=== PATIENT | female | born 1955 | race Caucasian/White ===

== ENCOUNTER 2023-12-12 18:04 | Emergency (ER) | payer MEDICARE, OTHER ==
[~2023-12-12] VITALS: Ht 172.7 cm; Wt 95.4 kg
[2023-12-12 18:52] LABS: HEMOGLOBIN 13.3 g/dL (12.0-18.0)
[2023-12-12 18:55] LABS: BASOPHILS 1.4 % (0-2); HEMATOCRIT 39.1 % (35.0-50.0); LYMPHOCYTES 30.6 % (24-44); MCH 30.9 (27-36); MCHC 33.9 g/dl (30-36); MCV 91.2 fl (81-99); PLATELET COUNT 173 K/uL (140-440); RBC 4.29 M/ul (4.3-5.7); RDW 13.3 (10.5-15.0)
[2023-12-12 19:03] LABS: BILIRUBIN, URINE NEGATIVE (negative); BLOOD/HGB, URINE NEGATIVE (Negative); KETONE, URINE NEGATIVE (Negative); LEUK ESTERASE, URINE NEGATIVE (negative); NITRITE, URINE NEGATIVE (negative); PH, URINE 7.5 (5-7)
[2023-12-12 19:14] LABS: ALBUMIN 3.9 g/dL (3.4-5.0); ALBUMIN/GLOBULIN RATIO 1.22 (1.1-2.4); ANION GAP 11.6 (7-21); BILIRUBIN, TOTAL 0.5 ng/dL (0.2-1.0); BUN/CREATININE RATIO 9.16 (6.0-28.6); CREATININE, SERUM 1.2 mg/dL (0.55-1.02); POTASSIUM 3.6 mmol/L (3.5-5.1); PROTEIN, TOTAL 7.1 g/dL (6.4-8.2)
[2023-12-12] MEDS ORDERED: ENALAPRILAT DIHYDRATE 1.25 MG/ML VIAL IV ONE ×2 (19:45→21:15)
[2023-12-12] MEDS ORDERED: LISINOPRIL10 MG PO (21:32)
[2023-12-12 21:55] VITALS: BP 146/84
[2023-12-12] MEDS ORDERED: BAYER CHEWABLE81 MG PO (21:55)
[2023-12-12] MEDS ORDERED: AMITRIPTYLINE H10 MG PO (21:56)
--- NOTE | 2023-12-12 22:28 | EKG ---
[facility] [address] [facility] [place], [place] [address] Signed Normal sinus rhythm Normal ECG No previous ECGs available Confirmed by Ryan Lee MD () on 12/12/2023 10:28:13 PM Electronically Signed By: RYAN LEE MD 12/12/238 PATIENT NAME: DEMETRIO FERRIS Electrocardiogram DATE OF : 59 PHYSICIAN: RYAN LEE MD REPORT #: [id number] REPORT IS CONFIDENTIAL AND NOT TO BE RELEASED WITHOUT AUTHORIZATION
== END 2023-12-12 21:48 | disposition home or self-care (01) ==
LOC: ED 18:04
PROVIDERS: Emergency Medicine
DX: R03.0 Elevated blood-pressure reading, without diagnosis of hypertension (principal); Z88.5 Allergy status to narcotic agent; Z79.899 Other long term (current) drug therapy; Z79.82 Long term (current) use of aspirin
CPT/HCPCS: 36415; 71045; 80053; 81003; 83880; 84484; 85025; 93005; 93010; 96374; 96376; 99284-25

== ENCOUNTER 2024-03-11 07:53 | Emergency (ER) | payer MEDICARE, OTHER ==
[~2024-03-11] VITALS: Ht 172.7 cm; Wt 97.7 kg
[~2024-03-11 07:53] MED LIST: AMITRIPTYLINE H10 MG PO; BAYER CHEWABLE81 MG PO; LISINOPRIL10 MG PO
[2024-03-11] MEDS ORDERED: LEVOTHYROXINE88 MCG PO (08:01)
[2024-03-11] MEDS ORDERED: LISINOPRIL2.5 MG PO (08:01)
[2024-03-11] MEDS ORDERED: ETOMIDATE 40 MG/20 ML VIAL IV ONE (08:15)
[2024-03-11 08:23] LABS: BASOPHILS 0.8 % (0-2); EOSINOPHILS 1.1 % (0-6); HEMATOCRIT 41.6 % (35.0-50.0); LYMPHOCYTES 41.4 % (24-44); MCH 30.8 (27-36); MCHC 33.6 g/dl (30-36); MCV 91.7 fl (81-99); MONOCYTES 7.7 % (0-12); PLATELET COUNT 153 K/uL (140-440); RBC 4.53 M/ul (4.3-5.7); RDW 13.6 (10.5-15.0)
[2024-03-11 08:38] LABS: ALBUMIN/GLOBULIN RATIO 1.29 (1.1-2.4); ANION GAP 14.2 (7-21); BILIRUBIN, TOTAL 0.8 ng/dL (0.2-1.0); BUN/CREATININE RATIO 11.2 (6.0-28.6); CALCIUM 9.1 mg/dL (8.5-10.1); CREATININE, SERUM 1.25 mg/dL (0.55-1.02); MAGNESIUM 1.7 mg/dL (1.8-2.4); POTASSIUM 3.2 mmol/L (3.5-5.1); PROTEIN, TOTAL 7.1 g/dL (6.4-8.2); TSH, 3RD GENERATION 5.43 uIU/mL (0.358-3.740)
[2024-03-11] MEDS ORDERED: POTASSIUM CHLORIDE 20 MEQ/15 ML CUP PO ONE (09:00)
[2024-03-11] MEDS ORDERED: DILTIAZEM HCl/D5W 125 ML IV SCH (09:00)
[2024-03-11] MEDS ORDERED: MAGNESIUM SULFATE 2 GM/50 ML BAG IV ONE (09:00)
[2024-03-11] MEDS ORDERED: dilTIAZem HCL 25 MG/5 ML VIAL IV ONE (09:00)
[2024-03-11] MEDS ORDERED: METOPROLOL TARTRATE 5 MG/5 ML VIAL IV SCH (10:45)
[2024-03-11] MEDS ORDERED: SODIUM CHLORIDE 0.9% 500 ML IV SCH (11:00)
[2024-03-11] MEDS ORDERED: APIXABAN 5 MG TAB PO ONE (12:15)
[2024-03-11 13:55] VITALS: BP 125/74
--- NOTE | 2024-03-11 22:04 | EKG ---
[facility] [address] [facility] [place] [address] Signed Poor data quality, interpretation may be adversely affected Atrial fibrillation with rapid ventricular response ST \T\ T wave abnormality, consider inferior ischemia Abnormal ECG When compared with ECG of 12-DEC-2023 18:24, Atrial fibrillation has replaced Sinus rhythm T wave inversion more evident in Inferior leads T wave inversion now evident in Lateral leads Confirmed by Ryan Lee MD () on 03/11/2024 10:04:04 PM Electronically Signed By: RYAN LEE MD 03/11/242203 PATIENT NAME: DEMETRIO FERRIS Electrocardiogram DATE OF : 59 PHYSICIAN: RYAN LEE MD REPORT #: [id number] REPORT IS CONFIDENTIAL AND NOT TO BE RELEASED WITHOUT AUTHORIZATION
--- NOTE | 2024-03-11 22:05 | EKG ---
[facility] [address] [facility] [place] [address] Signed Poor data quality, interpretation may be adversely affected Sinus tachycardia with premature supraventricular complexes Marked ST abnormality, possible lateral subendocardial injury Abnormal ECG When compared with ECG of 11-MAR-2024 08:00, Sinus rhythm has replaced Atrial fibrillation QT has lengthened Confirmed by Ryan Lee MD () on 03/11/2024 10:05:35 PM Electronically Signed By: RYAN LEE MD 03/11/245 PATIENT NAME: DEMETRIO FERRIS Electrocardiogram DATE OF : 59 PHYSICIAN: RYAN LEE MD REPORT #: [id number] REPORT IS CONFIDENTIAL AND NOT TO BE RELEASED WITHOUT AUTHORIZATION
--- NOTE | 2024-03-11 22:07 | EKG ---
[facility] [address] [facility] [place] [address] Signed Atrial fibrillation with rapid ventricular response Nonspecific ST and T wave abnormality Abnormal ECG When compared with ECG of 11-MAR-2024 08:00, Atrial fibrillation has replaced Sinus rhythm T wave inversion no longer evident in Lateral leads Confirmed by Ryan Lee MD () on 03/11/2024 10:07:16 PM Electronically Signed By: RYAN LEE MD 03/11/24 2207 PATIENT NAME: DEMETRIO FERRIS Electrocardiogram DATE OF : 59 PHYSICIAN: RYAN LEE MD REPORT #: [id number] REPORT IS CONFIDENTIAL AND NOT TO BE RELEASED WITHOUT AUTHORIZATION
== END 2024-03-11 13:55 | disposition short-term general hospital (02) ==
LOC: ED 07:53
PROVIDERS: Emergency Medicine
DX: I48.91 Unspecified atrial fibrillation (principal); E87.6 Hypokalemia; E83.42 Hypomagnesemia; I10 Essential (primary) hypertension; E03.9 Hypothyroidism, unspecified; F41.9 Anxiety disorder, unspecified; Z88.5 Allergy status to narcotic agent; Z79.82 Long term (current) use of aspirin; Z79.890 Hormone replacement therapy; Z79.899 Other long term (current) drug therapy
CPT/HCPCS: 36415; 71045; 80053; 83735; 84443; 84484; 85025; 93005; 93010; A9270; J3475; J7030

== ENCOUNTER 2024-05-02 15:17 | Emergency (ER) | payer MEDICARE, OTHER ==
[~2024-05-02] VITALS: Ht 172.7 cm; Wt 93.6 kg
[~2024-05-02 15:17] MED LIST changes: +LEVOTHYROXINE88 MCG PO; +LISINOPRIL2.5 MG PO
[2024-05-02] MEDS ORDERED: NITROGLYCERIN 0.4 MG SUBL SL PRN (15:45)
[2024-05-02] MEDS ORDERED: ASPIRIN 81 MG CHEW PO ONE (15:45)
[2024-05-02 16:13] LABS: BASOPHILS 0.7 % (0-2); EOSINOPHILS 0.8 % (0-6); HEMATOCRIT 41.4 % (35.0-50.0); HEMOGLOBIN 14.3 g/dL (12.0-18.0); LYMPHOCYTES 27.6 % (24-44); MCH 31.7 (27-36); MCHC 34.6 g/dl (30-36); MCV 91.7 fl (81-99); MONOCYTES 6.8 % (0-12); NEUTROPHILS 64.1 % (39-80); PLATELET COUNT 197 K/uL (140-440); RBC 4.52 M/ul (4.3-5.7); RDW 13.5 (10.5-15.0)
[2024-05-02 16:37] LABS: ALBUMIN/GLOBULIN RATIO 1.21 (1.1-2.4); ALKALINE PHOSPHATASE 68 U/L (46-116); ALT (SGPT) 25 U/L (14-59); ANION GAP 12.6 (7-21); AST (SGOT) 16 U/L (15-37); BILIRUBIN, TOTAL 0.7 ng/dL (0.2-1.0); BUN/CREATININE RATIO 10.67 (6.0-28.6); CALCIUM 9.4 mg/dL (8.5-10.1); CARBON DIOXIDE 29 mmol/L (21-32); CHLORIDE 103 mmol/L (98-107); CREATININE, SERUM 1.03 mg/dL (0.55-1.02); GLOMERULAR FILTRATION RATE,EST 60 mL/min (>60); POTASSIUM 3.6 mmol/L (3.5-5.1); PROTEIN, TOTAL 7.3 g/dL (6.4-8.2); UREA NITROGEN 11 mg/dL (7-18)
[2024-05-02] MEDS ORDERED: METOPROLOL SUCC25 MG PO (16:51)
[2024-05-02] MEDS ORDERED: ELIQUIS5 MG PO (16:51)
[2024-05-02 17:31] VITALS: BP 156/85
--- NOTE | 2024-05-02 19:23 | EKG ---
[facility] [address] [facility] [place] [address] Signed Normal sinus rhythm Nonspecific ST abnormality Abnormal ECG When compared with ECG of 11-MAR-2024 08:42, Sinus rhythm has replaced Atrial fibrillation Nonspecific T wave abnormality, improved in Inferior leads Confirmed by Jaden Jarvis MD ([id number]) on 05/02/2024 7:23:31 PM Electronically Signed By: JADEN JARVIS MD 05/02/241922 PATIENT NAME: DEMETRIO FERRIS Electrocardiogram DATE OF : 59 PHYSICIAN: JADEN JARVIS MD REPORT #: [id number] REPORT IS CONFIDENTIAL AND NOT TO BE RELEASED WITHOUT AUTHORIZATION
== END 2024-05-02 17:30 | disposition home or self-care (01) ==
LOC: ED 15:17
PROVIDERS: Emergency Medicine
DX: R00.2 Palpitations (principal); R07.89 Other chest pain; I10 Essential (primary) hypertension; Z88.5 Allergy status to narcotic agent; Z79.01 Long term (current) use of anticoagulants; Z79.890 Hormone replacement therapy; Z79.899 Other long term (current) drug therapy
CPT/HCPCS: 36415; 71045; 80053; 83735; 83880; 84484; 85025; 93005; 93010; 99285-25